=== PATIENT | male | born 1995 | race Two or more races ===

== ENCOUNTER 2019-11-18 22:06 | Emergency (ER) | payer SELFPAY ==
[2019-11-18 22:11] VITALS: BP 143/88; PULSE 78; TEMP 98.2; BMI 43.8
--- NOTE | 2019-11-18 22:22 | PDOC ---
History of Present Illness - General Chief Complaint: Syncope/Near Syncope Stated Complaint: INTOX Time Seen by Provider: 11/18/19 22:22 - History of Present Illness Initial Comments: 11/18/19 22:57 24yo M with PMHx EtOH abuse presents after multiple episodes of vomiting after drinking all day yesterday. He states he drank 1 pint cognac, 2-3 Four Locos, and 1 bottle of Heine[place]en. He did not eat anything all day. According to gf he was throwing up while half-asleep/lethargic. GF decided to bring him into the ED after she noticed this because of fear of aspiration. He is currently a/o x4, endorsing no head, neck, or back pain, no neuro symptoms. He feels nauseous and has stomach discomfort but otherwise states he feels well. He admits to a former EtOH problem. He states he does not drink excessively anymore but today wanted to drink a lot. Denies using any other substance. 11/19/19 00:37 Past History - Medical History Allergies/Adverse Reactions: Allergies Allergy/AdvReac Type Severity Reaction Status Date / Time No Known Allergies Allergy Verified 11/18/19 22:07 COPD: No - Psycho-Social/Smoking History Smoking History: Current every day smoker Number of Cigarettes Smoked Daily: 10 Information on smoking cessation initiated: Yes - Substance Abuse Hx (Audit-C & DAST Scrn) How often the patient has a drink containing alcohol: 2-4 times / month How often the patient has six or more drinks on one occasion: Less than monthly Score: In Men: 4 or > Positive; In Women: 3 or > Positive: 3 Screen Result (Pos requires Nsg. Audit-10AR): Negative In the last yr the pt used illegal drug/Rx for NonMed reason: No Score: Yes response is considered Positive: 0 Screen Result (Positive result requires Nsg. DAST-10): Negative Review of Systems - Review of Systems Able to Perform ROS?: Yes Is the patient limited Hebrew proficient: No Constitutional: No: Chills, Diaphoresis, Fever, Weakness HEENTM: No: Blurred Vision, Recent change in vision, Tinnitus, Nose Bleeding, Throat Swelling Respiratory: Yes: Symptoms reported. No: Cough, Shortness of Breath, SOB with Exertion, Productive cough Cardiac (ROS): No: Symptoms Reported ABD/GI: Yes: Nausea, Poor Appetite, Vomiting. No: Abdominal Distended : No: Hematuria, Incontinence Musculoskeletal: No: Back Pain, Muscle Pain Integumentary: Yes: Dryness. No: Rash Neurological: No: Headache, Numbness, Paresthesia, Seizure, Tingling, Tremors, Weakness Psychiatric: No: Anxiety, Emotional Problems, Change in Appetite Endocrine: No: Symptoms Reported Hematologic/Lymphatic: No: Symptoms Reported All Other Systems: Reviewed and Negative *Physical Exam - Vital Signs Last Vital Signs Temp Pulse Resp BP Pulse Ox 98.2 F 78 20 143/88 98 11/18/19 22:08 11/18/19 22:08 11/18/19 22:08 11/18/19 22:08 11/18/19 22:08 - Physical Exam General Appearance: Yes: Nourished, Appropriately Dressed. No: Apparent Distress HEENT: positive: EOMI, SHIRIN, Normal ENT Inspection, Normal Voice. negative: Tonsillar Erythema, Rhinorrhea, Sinus Tenderness, TM Erythema Neck: positive: Supple. negative: Tender Respiratory/Chest: positive: Lungs Clear, Normal Breath Sounds. negative: Chest Tender, Respiratory Distress, Accessory Muscle Use Cardiovascular: positive: Regular Rhythm, Regular Rate Vascular Pulses: Carotid (R): 2+, Carotid (L): 2+, Dorsalis-Pedis (R): 2+, Doralis-Pedis (L): 2+ Gastrointestinal/Abdominal: positive: Normal Bowel Sounds, Soft. negative: Tenderness Musculoskeletal: positive: Normal Inspection. negative: CVA Tenderness Extremity: positive: Normal Capillary Refill, Normal Inspection, Normal Range of Motion Integumentary: positive: Normal Color, Dry, Warm Neurologic: positive: fraud representative II-XII NML intact, Fully Oriented, Alert, Normal Mood/Affect, Normal Response, Motor Strength 5/5 Heart Score/ECG Review - ECG Intrepretation Rhythm: Regular Rhythm - ECG Impressions Normal ECG: Yes ED Treatment Course - LABORATORY CBC & Chemistry Diagram: 11/18/19 22:47 11/18/19 22:47 Medical Decision Making - Medical Decision Making 11/18/19 23:29 24 yo otherwise healthy M s/p etoh and vomiting. normal neuro exam + aaox4 + normal CV and pulm exam. reports current nausea and difficulty tolerating PO -> IV hydration, zofran, maalox + pepcid. -> reassess refuses tetanus shot 11/18/19 23:33 11/19/19 01:03 Discharge - Discharge Information Problems reviewed: Yes Clinical Impression/Diagnosis: Alcohol intoxication Qualifiers: Complication of substance-induced condition: uncomplicated Qualified Code(s): F10.920 - Alcohol use, unspecified with intoxication, uncomplicated Condition: Improved Disposition: HOME - Admission No - Follow up/Referral Referrals: [facility] [place] [facility] [place] [Provider Group] - Patient Discharge Instructions Additional Instructions: You came to the ED after vomiting multiple times while intoxicated on alcohol. Please follow up with the primary doctor listed in these instructions ([facility]) within 2 days of leaving the ED today. Come back with any severe symptoms. - Post Discharge Activity
--- NOTE | 2019-11-18 22:33 | PDOC ---
Attending Attestation - Resident Resident Name: Adan Luna - ED Attending Attestation I have performed the following: I have examined & evaluated the patient, The case was reviewed & discussed with the resident, I agree w/resident's findings & plan - HPI HPI: 11/18/19 23:19 Pt comes with nausea and vomiting after drinking 2 4 locos and 3 heinekin and a huge entire bottle of some other liquor. not drunk now. Pt insists that hes not and alcoholic Pt comes for hangover symptoms - Physicial Exam PE: 11/18/19 23:20 Agree with resident exam - Medical Decision Making 11/18/19 23:19 Pt will have labs; so far CBC normal lab called to say chem specimen is hemolyzed; we requested they report it regardless. 11/19/19 01:12 repeat chem normal Pt feeling better with hydration and he will be discharged. Discharge - Discharge Information Problems reviewed: Yes Clinical Impression/Diagnosis: Hangover without complication Alcohol intoxication Qualifiers: Complication of substance-induced condition: uncomplicated Qualified Code(s): F10.920 - Alcohol use, unspecified with intoxication, uncomplicated Condition: Improved Disposition: HOME - Follow up/Referral Referrals: [facility] [place] [facility] [place] [Provider Group] - Patient Discharge Instructions Patient Printed Discharge Instructions: DI for Alcohol Use Disorder Additional Instructions: You came to the ED after vomiting multiple times while intoxicated on alcohol. Please follow up with the primary doctor listed in these instructions ([facility]) within 2 days of leaving the ED today. Come back with any severe symptoms. - Post Discharge Activity
[2019-11-18] MEDS ORDERED: ONDANSETRON 4 MG/2 ML VIAL IVPUSH ONE (22:48)
[2019-11-18] MEDS ORDERED: LACTATED RINGERS SOLUTION 1000 ML INFUS.BAG IV ONE (22:48)
[2019-11-18] MEDS ORDERED: FAMOTIDINE 20 MG/50 ML IVPB 20 MG/50 ML MG IVPB ONE (22:49)
[2019-11-18] MEDS ORDERED: MAG HYDROX/AL HYDROX/SIMETH 30 ML UNIT-DOSE CUP PO ONE (22:49)
[2019-11-18 23:11] LABS: BASO % 0.5 % (0-2.0); HEMATOCRIT 46.9 % (35.4-49); HEMOGLOBIN 15.3 GM/dL (11.7-16.9); LYMPH % 13.2 % (8-40); MCH 27.5 pg (25.7-33.7); MCHC 32.7 g/dl (32.0-35.9); MEAN CELL VOLUME 84.2 fl (80-96); MONO % 5.6 % (3.8-10.2); NEUT % 79.7 % (42.8-82.8); PLATELET COUNT 191 K/MM3 (134-434); RBC 5.56 M/mm3 (4.00-5.60); RDW 14.2 % (11.9-15.9)
[2019-11-18 23:31] LABS: ALBUMIN 4.2 g/dl (3.4-5.0); ALK PHOS 140 U/L (45-117); BILIRUBIN,TOTAL 0.6 mg/dL (0.2-1); BLOOD UREA NITROGEN 13.3 mg/dL (7-18); CALCIUM 8.8 mg/dL (8.5-10.1); CHLORIDE 106 mmol/L (98-107); CO2 27 mmol/L (21-32); GLUCOSE,RANDOM 95 mg/dL (74-106); SGOT/AST 47 U/L (15-37); SGPT/ALT 28 U/L (13-61); SODIUM 138 mmol/L (136-145); TOT PROT 8.1 g/dl (6.4-8.2)
[2019-11-18 23:33] LABS: ANION GAP 4 MMOL/L (8-16)
[2019-11-18 23:35] LABS: POTASSIUM 6.5 mmol/L (3.5-5.1)
--- NOTE | 2019-11-19 20:01 | EKG ---
Test Reason : Blood Pressure : / mmHG Vent. Rate : 073 BPM Atrial Rate : 073 BPM P-R Int : 172 ms QRS Dur : 106 ms QT Int : 414 ms P-R-T Axes : 068 083 042 degrees QTc Int : 456 ms NORMAL SINUS RHYTHM INCOMPLETE RIGHT BUNDLE BRANCH BLOCK BORDERLINE ECG NO PREVIOUS ECGS AVAILABLE Confirmed by NAVEEN SKAGGS MD ([id number]) on 11/19/2019 8:00:55 PM Referred By: Confirmed By:NAVEEN SKAGGS MD
== END 2019-11-19 01:30 | disposition home or self-care (01) ==
LOC: JER 22:06
PROC: 3E033GC Introduction of Other Therapeutic Substance into Peripheral Vein, Percutaneous Approach (ICD-10-PCS; principal; 2019-11-18)
DX: F10.920 Alcohol use, unspecified with intoxication, uncomplicated (principal)
CPT/HCPCS: 36415; 80053; 80307; 84132; 85025; 93005; 93010; 99284-25